=== PATIENT | female | born 1945 | race Caucasian/White ===

== ENCOUNTER 2018-01-03 14:58 | Emergency (ER) | payer MEDICARE ==
[2018-01-03] MEDS ORDERED: Ondansetron HCl/PF 4 MG/2 ML Vial ONE (15:37)
[2018-01-03 15:59] LABS: ALT (SGPT) 24 U/L (8-55); AST (SGOT) 27 U/L (5-34); Albumin 3.9 g/dL (3.4-4.8); Alkaline Phosphatase 48 U/L (40-150); Anion Gap 17 mmol/L (10-20); BUN (Urea Nitrogen) 26 mg/dL (9.8-20.1); Bilirubin, Total 0.7 mg/dL (0.2-1.2); Calc. Creatinine Clearance 0 mL/min (70-130); Calcium 9.2 mg/dL (7.8-10.44); Carbon Dioxide 20 mmol/L (23-31); Chloride 106 mmol/L (98-107); Estimated GFR-MDRD 58; Globulin 2.6 g/dL (2.4-3.5); Glucose 175 mg/dL (80-115); Lipase 10 U/L (8-78); Potassium 4.1 mmol/L (3.5-5.1); Protein, Total 6.5 g/dL (6.0-8.3); Sodium 139 mmol/L (136-145)
[2018-01-03 16:01] LABS: Hemoglobin 14.7 g/dL (12.0-16.0); Mean Corpuscular HGB CONC 34.1 g/dL (32.0-36.0); Mean Corpuscular Hemoglobin 32.6 pg (27.0-31.0); Mean Corpuscular Volume 95.7 fl (81.0-99.0); Mean Platelet Volume 6.8 fL (7.4-10.4); Platelet Count 302 thou/uL (130-400); RBC Distribution Width 11.5 % (11.5-14.5); Red Blood Cell (RBC) Count 4.52 mill/uL (4.20-5.40); White Blood Cell (WBC) Count 11.3 thou/uL (4.8-10.8)
[2018-01-03 16:02] LABS: Band 12 % (5-11); Eosinophils 2 % (0-10); Lymphocytes 3 % (21-51); MDiff Complete? YES; Monocytes 3 % (0-10); Neutrophil 80 % (42-75); PLT Morphology Comment Appears Adequate; RBC Morphology Normal
--- NOTE | 2018-01-03 16:15 | RAD ---
ONE VIEW CHEST: 01/03/18 HISTORY: Nausea and vomiting. COMPARISON: 10/14/15 FINDINGS: Portable upright chest demonstrates a calcified left axillary lymph node, unchanged. Stable configura tion of the cardiac silhouette. The pulmonary vessels and hilum are normal. Costophrenic angles are c lear. No masses or consolidation. No osseous abnormality or pneumothorax. IMPRESSION: No acute cardiopulmonary process. POS: [facility]
== END 2018-01-03 17:34 | disposition home or self-care (01) ==
LOC: SCSER 14:58
DX: R11.2 Nausea with vomiting, unspecified (principal); R19.7 Diarrhea, unspecified; E20.9 Hypoparathyroidism, unspecified; I10 Essential (primary) hypertension; F41.9 Anxiety disorder, unspecified; Z79.899 Other long term (current) drug therapy; E78.5 Hyperlipidemia, unspecified
CPT/HCPCS: 71045; 80053; 83690; 85025; 96361; 96374; J2405

== ENCOUNTER 2019-03-16 14:56 | Outpatient (CLI) | payer MEDICARE ==
--- NOTE | 2019-03-16 15:22 | ULT ---
ULTRASOUND DOPPLER DUPLEX VENOUS BILATERAL LOWER EXTREMITIES: DATE: 03/16/2019 HISTORY: Bilateral lower extremity edema TECHNIQUE: Grayscale, color-flow, and spectral analysis, of major veins of bilateral lower extremities. FINDINGS: There is demonstration of blood flow with normal compressibility, of the bilateral common femoral, pr ofunda femoral, greater saphenous, femoral, popliteal, and posterior tibial, veins. IMPRESSION: Negative. No deep venous thrombosis of bilateral lower extremities.
== END 2019-03-16 14:57 | disposition home or self-care (01) ==
LOC: SCSULT 14:56
PROVIDERS: ATTEND Family Medicine
DX: R60.9 Edema, unspecified (principal)
CPT/HCPCS: 36415; 80048; 93970

== ENCOUNTER 2019-03-20 14:03 | Inpatient (IN) | payer MEDICARE ==
[2019-03-20 14:40] LABS: #Eosinphils 0.5 thou/uL (0.0-0.7); #Lymphocytes 1.9 thou/uL (1.20-3.40); #Monocytes 0.9 thou/uL (0.11-0.59); #Neutrophils 9.3 thou/uL (1.40-6.50); %Basophils 0.4 % (0.0-1.0); %Eosinophils 4.2 % (0.0-10.0); %Lymphocytes 14.9 % (21.0-51.0); %Monocytes 6.7 % (0.0-10.0); %Neutrophils 73.9 % (42.0-75.0); Hemoglobin 13.2 g/dL (12.0-16.0); Mean Corpuscular HGB CONC 34.2 g/dL (32.0-36.0); Mean Corpuscular Volume 99.5 fL (78.0-98.0); Mean Platelet Volume 6.9 fL (7.4-10.4); Platelet Count 383 thou/uL (130-400); RBC Distribution Width 11.8 % (11.5-14.5); Red Blood Cell (RBC) Count 3.87 mill/uL (4.20-5.40); White Blood Cell (WBC) Count 12.6 thou/uL (4.8-10.8)
[2019-03-20 14:59] LABS: ALT (SGPT) 18 U/L (8-55); AST (SGOT) 21 U/L (5-34); Albumin 3.9 g/dL (3.4-4.8); Alkaline Phosphatase 82 U/L (40-150); Anion Gap 13 mmol/L (10-20); BUN (Urea Nitrogen) 25 mg/dL (9.8-20.1); Bilirubin, Total 0.5 mg/dL (0.2-1.2); Calc. Creatinine Clearance 0 mL/min (70-130); Calcium 9.7 mg/dL (7.8-10.44); Carbon Dioxide 22 mmol/L (23-31); Chloride 105 mmol/L (98-107); Estimated GFR-MDRD 51; Globulin 3.1 g/dL (2.4-3.5); Glucose 158 mg/dL (83-110); Potassium 3.6 mmol/L (3.5-5.1); Sodium 136 mmol/L (136-145)
[2019-03-20] MEDS ORDERED: Piperacillin/Tazobactam 4.5 GM VIAL ONE (16:18)
--- NOTE | 2019-03-20 16:49 | RAD ---
THREE VIEWS OF THE RIGHT FOOT: 03/20/19 COMPARISON: None. HISTORY: Cellulitis. Abscess in the bottom of the foot. FINDINGS: Three views of the right foot shows no evidence of acute fracture or dislocation. There is periosteal thickening in the metatarsals of the second, third, and fourth toes. No osseous erosions are seen. IMPRESSION: No evidence of acute osseous abnormality. Nonspecific periosteal reaction in the second through fourt h metatarsals. POS: [facility]
[2019-03-20] MEDS ORDERED: Dextrose 50% Abboject 50 ML SYRINGE SLOW IVP PRN (19:18)
[2019-03-20] MEDS ORDERED: Dextrose 5% in Water 1,000 ML IV PRN (19:18)
[2019-03-20] MEDS ORDERED: HYDROcodone/Acetaminophen 5/325 mg Tablet PO PRN (19:18)
[2019-03-20] MEDS ORDERED: HumaLOG 300 UNITS/3 ML VIAL SC PRN ×2 (19:18)
[2019-03-20] MEDS ORDERED: Ondansetron PF 4 MG/2 ML Vial IVP PRN (19:18)
[2019-03-20] MEDS ORDERED: Ibuprofen 200 MG TAB PO PRN (19:18)
[2019-03-20] MEDS ORDERED: Ondansetron ODT 4 MG TAB PO PRN (19:18)
[2019-03-20] MEDS ORDERED: Acetaminophen 325 MG TAB PO PRN (19:18)
[2019-03-20] MEDS ORDERED: hydrALAZINE 20 MG/ML VIAL SLOW IVP PRN (19:18)
[2019-03-20 20:30] VITALS: BMI 28.7
[2019-03-20] MEDS: Piperacillin/Tazobactam 3.375 GM in Sodium Chloride 0.9% 100 ML IVPB SCH (20:45)
[2019-03-20] MEDS: Famotidine 20 MG TAB PO SCH (20:45)
[2019-03-20] MEDS ORDERED: Vancomycin HCl 1 GM in Premix Bag 1 BAG IVPB SCH (21:00)
--- NOTE | 2019-03-21 01:00 | HP ---
PRIMARY CARE PHYSICIAN: Angel Lin MD. CHIEF COMPLAINT: Pain and swelling in the right foot and leg. HISTORY OF PRESENT ILLNESS: Ms. Ashley is a pleasant 73-year-old female who has a history of hypertension and hyperlipidemia. She was in her usual state of health until Saturday when she says her foot seemed a little bit uncomfortable, but she really could not see for herself. She asked her to take a look at it and he noticed a dome-like area that looked whitish. The pain got progressively worse and then by Saturday, the leg began to swell a little bit more and then on , it popped and there was pus coming out and then she started having both blood and pus return from the area. She went to see her primary care physician earlier today and due to the appearance of the area, he suggested that she come to the emergency room for evaluation. The patient has not had any fevers or chills, no nausea, no vomiting. She says that she has had some edema in the leg, which she had been treated for earlier, but she did not notice the infection symptoms until Saturday. REVIEW OF SYSTEMS: CONSTITUTIONAL: There has been no subjective fever, no chills, no night sweats, no weight loss. HEENT: No headaches. No dizziness. No visual changes. No sore throat, rhinorrhea, or neck pain. No adenopathy. PULMONARY: No hemoptysis. No cough. No wheezing. CARDIOVASCULAR: She denies any chest pain. No shortness of breath. No PND. No orthopnea. GASTROINTESTINAL: No abdominal pain. No nausea. No vomiting. No change in bowels. GENITOURINARY: No urinary frequency or hematuria, no hesitancy. NEUROLOGIC: No focal weakness or numbness. No seizures. PSYCHIATRIC: No symptoms of anxiety or depression. SKIN AND INTEGUMENT: As the History of Present Illness. PAST MEDICAL HISTORY: Significant for prediabetes, hypertension, hyperlipidemia, osteoporosis, and vaginal prolapse. PAST SURGICAL HISTORY: She has had an appendectomy, cholecystectomy, hysterectomy, and tonsillectomy. ALLERGIES: NO KNOWN DRUG ALLERGIES. SOCIAL HISTORY: She is a nonsmoker. She says she drinks "moderately." She is , has 2 children. She would not want to be resuscitated and would like to be a DNR. FAMILY HISTORY: Significant for coronary artery disease in her father and her mother had diabetes and osteoporosis. CURRENT MEDICATIONS: Include; 1. Lisinopril/hydrochlorothiazide 10/12.5 two times a day. 2. Albuterol inhaler as needed. 3. Estradiol 0.5 mg daily. 4. Simvastatin 40 mg at bedtime. 5. Alprazolam 0.5 mg 3 times a day. 6. Lasix 20 mg daily. 7. Potassium chloride 10 mEq daily. 8. Levothyroxine 112 mcg p.o. daily. PHYSICAL EXAMINATION: GENERAL: She is alert and oriented. She appears to be in no acute distress. She is well developed and well nourished. VITAL SIGNS: Blood pressure was 128/70, heart rate 94, respiratory rate of 20, temperature is 98, and O2 saturation was 93% on room air. HEENT: Her pupils are equal, round, and reactive to light and accommodation. Throat, there is no erythema, no exudates. Tympanic membranes are pearly navarro. NECK: There is no adenopathy, no bruits. LUNGS: Clear to auscultation. There is no wheezing, no rales, no rhonchi. CARDIOVASCULAR: She has a normal S1 and S2. I did not appreciate an S3 or S4. No murmurs, clicks, or rubs. ABDOMEN: Obese. It is soft, nontender, and nondistended. Positive for bowel sounds. There is no rebound, no guarding. EXTREMITIES: Her right lower extremity, there is redness all the way up to the calf on the lower extremity and 2+ pitting edema. There is also warmth in the leg and on the plantar aspect of the foot in the arch, there is an area of fluctuance in which she can express some whitish purulent material. She also has onychomycosis or mycotic nails bilaterally. However, her pulses are 2+ and symmetric in the dorsalis pedis and posterior tibial. NEUROLOGIC: Nonfocal. SKIN: As the extremity exam with the addition of some scaling skin on the lower extremities. IMAGING STUDIES: She had an x-ray of the foot, which was negative for any evidence of any gas. There was some periosteal thickening of the 2nd, 3rd, and 4th toes, but no osseous erosions. LABORATORY RESULTS: Her sodium was 136, potassium 3.6, chloride is 105, CO2 is 22, BUN of 25, creatinine 1.07, glucose is 158. White blood cell count is 12.6, hemoglobin 13.2, hematocrit is 38.5, and platelet count is 383. ASSESSMENT AND PLAN: 1. Ms. Ashley is a pleasant 73-year-old female, who suffers cellulitis of the right foot and leg. It is unclear whether or not she had any trauma or provoking factor. The area is quite extensive and she does have an elevation in her white blood cell count; therefore, she will be admitted for treatment, started on empiric IV antibiotics. We will also need to culture the wound and consult Surgery for possible I and D. 2. Prediabetes. Her blood glucose is a bit elevated; however, it is nonfasting. We will go ahead and check a fasting blood sugar in the a.m. as well as a hemoglobin A1c and place her on a sliding scale. 3. Hypertension. Continue her usual antihypertensive medications as well as p.r.n. medications as needed. 4. The patient will be placed on deep venous thrombosis and gastrointestinal prophylaxis. Job ID: [id number]
[2019-03-21] MEDS: Piperacillin/Tazobactam 3.375 GM in Sodium Chloride 0.9% 100 ML IVPB SCH ×4 (03:06→21:05)
[2019-03-21 05:55] LABS: #Basophils 0.1 thou/uL (0.0-0.2); #Eosinphils 0.6 thou/uL (0.0-0.7); #Lymphocytes 2.3 thou/uL (1.20-3.40); #Monocytes 0.8 thou/uL (0.11-0.59); #Neutrophils 4.2 thou/uL (1.40-6.50); %Basophils 0.9 % (0.0-1.0); %Lymphocytes 28.4 % (21.0-51.0); %Monocytes 9.6 % (0.0-10.0); Hemoglobin 12.5 g/dL (12.0-16.0); Mean Corpuscular HGB CONC 33.8 g/dL (32.0-36.0); Platelet Count 361 thou/uL (130-400); RBC Distribution Width 11.8 % (11.5-14.5); Red Blood Cell (RBC) Count 3.67 mill/uL (4.20-5.40)
[2019-03-21 06:17] LABS: Anion Gap 13 mmol/L (10-20); BUN (Urea Nitrogen) 19 mg/dL (9.8-20.1); Calc. Creatinine Clearance 77 mL/min (70-130); Carbon Dioxide 23 mmol/L (23-31); Chloride 107 mmol/L (98-107); Estimated GFR-MDRD 57; Glucose 102 mg/dL (83-110); Potassium 3.4 mmol/L (3.5-5.1); Sodium 140 mmol/L (136-145)
[2019-03-21] MEDS: Enoxaparin Sodium 40 MG/0.4 ML SYRINGE SC SCH (08:25)
[2019-03-21] MEDS: Famotidine 20 MG TAB PO SCH ×2 (08:25→21:02)
[2019-03-21 09:47] LABS: Hemoglobin A1c 6.2 % (4.0-6.0)
[2019-03-21] MEDS ORDERED: Lidocaine 1% (PF) 30 ML VIAL ONE (12:50)
[2019-03-21] MEDS ORDERED: Potassium Chloride 20 MEQ TAB PO SCH (15:30)
--- NOTE | 2019-03-21 16:22 | HP ---
HISTORY OF PRESENT ILLNESS: Yakelin Ashley is a 73-year-old female, admitted for right foot cellulitis. At home, she takes things for hypothyroidism, cholesterol, and anxiety. In the hospital, she is on a sliding scale insulin. Hemoglobin A1c was 6.2. I have been asked to see her regarding her right foot. The patient was admitted on 03/20/2019. Foot x-ray did not reveal any osteomyelitic changes. The patient has cellulitis on the aspect of her right foot. On the plantar aspect, there is an area of what appears to be a purulent collection beneath the skin. She has palpable pedal pulses. No evidence of vascular disease. She does not smoke. She does not drink alcohol. She is a DNR. HOME MEDICATIONS: 1. Furosemide. 2. Potassium. 3. Levothyroxine. 4. Simvastatin. 5. Lisinopril/hydrochlorothiazide 07/25.5. 6. Alprazolam t.i.d. p.r.n. PAST SURGICAL HISTORY: Open cholecystectomy; right paramedian incision many years ago, open; hysterectomy; tonsillectomy. PAST MEDICAL HISTORY: Prediabetes, hypertension, hyperlipidemia, osteoporosis, vaginal prolapse. PHYSICAL EXAMINATION: VITAL SIGNS: Height 5 foot 10 inches, weight 200 pounds. Temperature 97.8, pulse 74, blood pressure 114/69. HEAD, EARS, EYES, NOSE AND THROAT: Unremarkable. LUNGS: Clear to auscultation. CARDIAC: Regular rate and rhythm without murmur or gallop. ABDOMEN: Soft. Right paramedian vertical incision from cholecystectomy. Obese abdomen. EXTREMITIES: Palpable femoral, popliteal, dorsalis pedis pulses. On the right lateral foot, areas of marking, where cellulitis has resolved with intravenous antibiotics and markedly improved. On the plantar aspect laterally, mid foot is an area about 2 cm with what appears to be purulence under the skin. ASSESSMENT: Right foot infection. PLAN: Debridement at the bedside. She does not need to be n.p.o. We will ask the nurses to gather equipment, obtain consent, and debride this with alcohol pad and sharp instrument, and provide cultures, if possible. I expect her to be able to be discharged in 1 or 2 days, and she could follow up in my office, if necessary. We will wait and see what is under this area after I debrided it at bedside. Job ID: [id number]
--- NOTE | 2019-03-21 17:37 | PDOC.PN ---
- Subjective Encounter Start Date: 03/21/19 Encounter Start Time: 15:15 Ms. Ashley was seen today in follow-up of Cellulitis and abscess of the right foot. She does not have any complaints today - Objective Resuscitation Status - Order Detail: 03/20/19 19:13 Resuscitation Status Routine Resuscitation Status: DNAR: NO Resuscitation Discussed with: discussed with the patient MAR Reviewed: Yes Vital Signs & Weight: Vital Signs (12 hours) Temp Pulse Resp BP Pulse Ox 03/21/19 17:31 105/68 03/21/19 16:43 97.4 F L 70 16 96/52 L 93 L 03/21/19 11:39 97.8 F 74 16 114/69 90 L 03/21/19 08:25 90 L 03/21/19 08:08 97.8 F 73 18 147/85 H 90 L Weight Weight 200 lb Result Diagrams: 03/21/19 05:38 03/21/19 05:38 Additional Labs: Accuchecks 03/21/19 03/21/19 03/21/19 16:41 11:43 04:49 POC Glucose 173 H 98 96 03/20/19 19:55 POC Glucose 119 H Phys Exam - Physical Examination HEENT: PERRLA Respiratory: no wheezing, no rales, no rhonchi, clear to auscultation bilateral Cardiovascular: RRR, no significant murmur, no rub Gastrointestinal: soft, non-tender, no distention, positive bowel sounds Musculoskeletal: pulses present, edema present + erythema and mild warmth of the right lower extremity foot is dressed Dx/Plan (1) Cellulitis of right lower extremity Code(s): L03.115 - CELLULITIS OF RIGHT LOWER LIMB Status: Acute (2) Pre-diabetes Code(s): R73.03 - PREDIABETES Status: Chronic (3) Hypertension Code(s): I10 - ESSENTIAL (PRIMARY) HYPERTENSION Status: Chronic (4) Hyperlipidemia Code(s): E78.5 - HYPERLIPIDEMIA, UNSPECIFIED Status: Chronic - Plan * Cellulitis and abscess of the right foot and leg- he is post I& D of the right foot * Continue IV antibiotics * Will re-assess the appearance tomorrow * Follow-up on cultures * HTN- blood pressure is stable.
[2019-03-21] MEDS: Vancomycin HCl 1.25 GM in Sodium Chloride 0.9% 250 ML 250 ML IVPB SCH (17:39)
[2019-03-21] MEDS ORDERED: ALPRAZolam 1 MG TAB PO PRN (17:54)
[2019-03-21] MEDS: Atorvastatin Calcium 20 MG TAB PO SCH (21:02)
[2019-03-21] MEDS: Lisinopril/Hydrochlorothiazide 10 mg/12.5 mg Tablet PO SCH (21:03)
[2019-03-22] MEDS: Piperacillin/Tazobactam 3.375 GM in Sodium Chloride 0.9% 100 ML IVPB SCH ×4 (05:04→21:04)
[2019-03-22] MEDS: Levothyroxine Sodium 100 MCG TAB PO SCH (05:06)
[2019-03-22] MEDS: Lisinopril/Hydrochlorothiazide 10 mg/12.5 mg Tablet PO SCH ×2 (07:32→21:03)
[2019-03-22] MEDS: Potassium Chloride 10 MEQ TAB PO SCH (07:33)
[2019-03-22] MEDS: Famotidine 20 MG TAB PO SCH ×2 (07:33→21:03)
[2019-03-22] MEDS: Enoxaparin Sodium 40 MG/0.4 ML SYRINGE SC SCH (07:33)
[2019-03-22] MEDS: Furosemide 20 MG TAB PO SCH (07:33)
[2019-03-22] MEDS ORDERED: PROVENTIL INHALER 6.7 G (200 INHALATIONS) INH PRN (15:30)
--- NOTE | 2019-03-22 15:33 | PDOC.PN ---
- Subjective Encounter Start Date: 03/22/19 Encounter Start Time: 15:38 Ms. Ashley was seen in follow-up of cellulitis and infection of the right foot. She says it has improved. She is complaining of a cough with some wheezing which started last night. - Objective Resuscitation Status - Order Detail: 03/20/19 19:13 Resuscitation Status Routine Resuscitation Status: DNAR: NO Resuscitation Discussed with: discussed with the patient MAR Reviewed: Yes Vital Signs & Weight: Vital Signs (12 hours) Temp Pulse Resp BP BP Pulse Ox 03/22/19 07:32 72 141/73 H 03/22/19 07:30 92 L 03/22/19 07:19 97.8 F 77 17 141/73 H 92 L Weight Weight 200 lb I&O: 03/21/19 03/22/19 03/23/19 06:59 06:59 06:59 Intake Total 1550 Balance 1550 Result Diagrams: 03/21/19 05:38 03/21/19 05:38 Additional Labs: Accuchecks 03/22/19 03/22/19 03/21/19 11:29 04:33 19:45 POC Glucose 182 H 122 H 117 H 03/21/19 16:41 POC Glucose 173 H Phys Exam - Physical Examination HEENT: PERRLA Respiratory: wheezing present + bilaterally wheezing, no rhonchi Cardiovascular: RRR, no significant murmur, no rub Gastrointestinal: soft, non-tender, no distention, positive bowel sounds Musculoskeletal: pulses present, edema present + mild right lower extremityeruthema Neurological: non-focal, normal sensation Dx/Plan (1) Cellulitis of right lower extremity Code(s): L03.115 - CELLULITIS OF RIGHT LOWER LIMB Status: Acute (2) Pre-diabetes Code(s): R73.03 - PREDIABETES Status: Chronic (3) Hypertension Code(s): I10 - ESSENTIAL (PRIMARY) HYPERTENSION Status: Chronic (4) Hyperlipidemia Code(s): E78.5 - HYPERLIPIDEMIA, UNSPECIFIED Status: Chronic - Plan * Cellultis of the rith leg and foot- improved- * Wheezing- will start Albuterol PRN * HTN- blood pressure is controlled * I spoke with the patient's daughter and she is concerned about her parents ability to live by themselves. She noted that their home was in disarray and essentially not liveable . Will consult Case management for discharge planning.
[2019-03-22 16:43] LABS: Vancomycin, Trough 12.7 ug/mL
[2019-03-22] MEDS: Vancomycin HCl 1.25 GM in Sodium Chloride 0.9% 250 ML 250 ML IVPB SCH (17:44)
[2019-03-22] MEDS ORDERED: Vancomycin HCl 1.5 GM in Sodium Chloride 0.9% 250 ML 300 ML IVPB SCH (18:00)
[2019-03-22] MEDS: Atorvastatin Calcium 20 MG TAB PO SCH (21:03)
[2019-03-23] MEDS: Piperacillin/Tazobactam 3.375 GM in Sodium Chloride 0.9% 100 ML IVPB SCH ×2 (03:20→09:00)
[2019-03-23] MEDS: Levothyroxine Sodium 100 MCG TAB PO SCH (03:20)
[2019-03-23] MEDS: Famotidine 20 MG TAB PO SCH ×2 (08:18→20:52)
[2019-03-23] MEDS: Potassium Chloride 10 MEQ TAB PO SCH (08:18)
[2019-03-23] MEDS: Enoxaparin Sodium 40 MG/0.4 ML SYRINGE SC SCH (08:18)
[2019-03-23] MEDS: Furosemide 20 MG TAB PO SCH (08:18)
[2019-03-23] MEDS: Lisinopril/Hydrochlorothiazide 10 mg/12.5 mg Tablet PO SCH ×2 (08:18→20:51)
--- NOTE | 2019-03-23 13:58 | HP ---
ADDENDUM: Addendum to history and physical/consultation. Note, the patient has edema in her right leg and cellulitis to her ankle. Further discussion with the patient reveals that she does not recall any offending trauma, but thinks she may have stepped on something Saturday or Saturday, although she did not feel that. They noticed a bump on the right foot, Saturday or Saturday. Today is Saturday. After incising and draining this and culturing it, we will have Wound Care change the dressings daily with saline wet-to-dry dressings and after washing with soap and water in the bath or shower. She will need to be on intravenous antibiotics until we obtained cultures back until her cellulitis improves. This is a deep wound infection and hopefully it will heal and infection clear with antibiotics. Job ID: [id number]
--- NOTE | 2019-03-23 14:43 | PDOC.PN ---
- Subjective Encounter Start Date: 03/23/19 Encounter Start Time: 14:42 Ms. Ashley was seen today in follow-up of celulitis of the right foot. She notes less swelling, but continued pain on the plantar aspect of her foot. - Objective Resuscitation Status - Order Detail: 03/20/19 19:13 Resuscitation Status Routine Resuscitation Status: DNAR: NO Resuscitation Discussed with: discussed with the patient MAR Reviewed: Yes Vital Signs & Weight: Vital Signs (12 hours) Temp Pulse Resp BP Pulse Ox 03/23/19 08:18 93 L 03/23/19 08:00 97.5 F L 83 20 154/78 H 93 L Weight Admit Weight 200 lb Weight 200 lb I&O: 03/22/19 03/23/19 03/24/19 06:59 06:59 06:59 Intake Total 1550 2120 Balance 1550 2120 Result Diagrams: 03/21/19 05:38 03/21/19 05:38 Additional Labs: Accuchecks 03/23/19 03/23/19 03/22/19 10:58 04:14 19:35 POC Glucose 194 H 113 H 191 H 03/22/19 16:25 POC Glucose 144 H Phys Exam - Physical Examination HEENT: PERRLA Respiratory: no wheezing, no rales, no rhonchi, clear to auscultation bilateral Cardiovascular: RRR, no significant murmur, no rub Gastrointestinal: soft, non-tender, no distention, positive bowel sounds Musculoskeletal: pulses present, edema present + mild erythema of the right leg wound is dressed Dx/Plan (1) Cellulitis of right lower extremity Code(s): L03.115 - CELLULITIS OF RIGHT LOWER LIMB Status: Acute (2) Pre-diabetes Code(s): R73.03 - PREDIABETES Status: Chronic (3) Hypertension Code(s): I10 - ESSENTIAL (PRIMARY) HYPERTENSION Status: Chronic (4) Hyperlipidemia Code(s): E78.5 - HYPERLIPIDEMIA, UNSPECIFIED Status: Chronic - Plan * Cellulitis- wound culture is growing strep. intermedius.- will change the antibiotics to Rocephin and flagyl * Continue local wound care * HTN- blood pressure is stable * Discharge planning in progress .
--- NOTE | 2019-03-23 15:03 | OP ---
DATE OF PROCEDURE: 03/21/2019 PREOPERATIVE DIAGNOSIS: Right foot infection. POSTOPERATIVE DIAGNOSIS: Right foot infection. PROCEDURES PERFORMED: Incision and drainage of right foot infection, debridement of overlying skin blister, appreciating the deeper wound tracking, approximately 1.5 cm deep to the wound cultures performed. ANESTHESIA: 1% Xylocaine. DESCRIPTION OF PROCEDURE: With the patient at bedside, the right foot plantar aspect mid beneath the metatarsal first cleansed with alcohol and blistered skin excised sharply with a 10 blade, removed and under this was a punctate opening. Local anesthetic was used at this point. 1% Xylocaine was infiltrated in the skin and subcutaneous tissue and a small opening made to unroof an underlying abscess cavity. A small amount of purulent material was sent for culture and sensitivity blistering in the wound. Wound packed open. The patient tolerated the procedure well. Job ID: [id number]
[2019-03-23] MEDS: metroNIDAZOLE 250 MG TAB PO SCH ×2 (16:01→20:52)
[2019-03-23] MEDS: cefTRIAXone\\ROCEPHIN 1 GM in Sodium Chloride 0.9% 100 ML IVPB SCH (16:02)
[2019-03-23] MEDS: Atorvastatin Calcium 20 MG TAB PO SCH (20:52)
[2019-03-24] MEDS: Levothyroxine Sodium 100 MCG TAB PO SCH (05:06)
[2019-03-24] MEDS: Potassium Chloride 10 MEQ TAB PO SCH (08:06)
[2019-03-24] MEDS: Furosemide 20 MG TAB PO SCH (08:06)
[2019-03-24] MEDS: Famotidine 20 MG TAB PO SCH ×2 (08:06→20:48)
[2019-03-24] MEDS: metroNIDAZOLE 250 MG TAB PO SCH ×3 (08:06→20:48)
[2019-03-24] MEDS: Lisinopril/Hydrochlorothiazide 10 mg/12.5 mg Tablet PO SCH ×2 (08:06→20:48)
[2019-03-24] MEDS: Enoxaparin Sodium 40 MG/0.4 ML SYRINGE SC SCH (08:06)
--- NOTE | 2019-03-24 14:31 | PDOC.PN ---
- Subjective Encounter Start Date: 03/24/19 Encounter Start Time: 14:29 Ms. Ashley was seen today in follow-up. She does not have any new complaints. - Objective Resuscitation Status - Order Detail: 03/20/19 19:13 Resuscitation Status Routine Resuscitation Status: DNAR: NO Resuscitation Discussed with: discussed with the patient MAR Reviewed: Yes Vital Signs & Weight: Vital Signs (12 hours) Temp Pulse Resp BP BP Pulse Ox 03/24/19 08:06 75 151/85 H 93 L 03/24/19 07:52 97.4 F L 75 18 151/85 H 93 L Weight Admit Weight 200 lb Weight 200 lb I&O: 03/23/19 03/24/19 03/25/19 06:59 06:59 06:59 Intake Total 2120 1720 Balance 2120 1720 Result Diagrams: 03/21/19 05:38 03/21/19 05:38 Additional Labs: Accuchecks 03/24/19 03/24/19 03/23/19 11:55 04:41 19:22 POC Glucose 109 124 H 132 H 03/23/19 16:06 POC Glucose 179 H Phys Exam - Physical Examination HEENT: PERRLA Respiratory: no wheezing, no rales, no rhonchi, clear to auscultation bilateral Cardiovascular: RRR, no significant murmur, no rub Gastrointestinal: soft, non-tender, no distention, positive bowel sounds Musculoskeletal: pulses present, edema present + mild erythema of the right lower extremity, wound on plantar foot, is clean, with clear drainage. no fluctuance Dx/Plan (1) Cellulitis of right lower extremity Code(s): L03.115 - CELLULITIS OF RIGHT LOWER LIMB Status: Acute (2) Pre-diabetes Code(s): R73.03 - PREDIABETES Status: Chronic (3) Hypertension Code(s): I10 - ESSENTIAL (PRIMARY) HYPERTENSION Status: Chronic (4) Hyperlipidemia Code(s): E78.5 - HYPERLIPIDEMIA, UNSPECIFIED Status: Chronic - Plan * Cellulitis of the right leg- can likely transition her to Keflex * HTN- blood pressure is borderline- will continue the current medications, and PRN medications * Pre-diabetes- stable- ( diet controlled) * Awaiting discharge plans, as patient's current living condition is unsuitable.
[2019-03-24] MEDS: cefTRIAXone\\ROCEPHIN 1 GM in Sodium Chloride 0.9% 100 ML IVPB SCH (15:01)
[2019-03-24] MEDS: Atorvastatin Calcium 20 MG TAB PO SCH (20:48)
[2019-03-25] MEDS ORDERED: Clopidogrel Bisulfate 75 MG TAB ONE (05:45)
[2019-03-25] MEDS: Levothyroxine Sodium 100 MCG TAB PO SCH (05:51)
[2019-03-25] MEDS: Famotidine 20 MG TAB PO SCH (09:17)
[2019-03-25] MEDS: Furosemide 20 MG TAB PO SCH (09:17)
[2019-03-25] MEDS: Potassium Chloride 10 MEQ TAB PO SCH (09:17)
[2019-03-25] MEDS: Enoxaparin Sodium 40 MG/0.4 ML SYRINGE SC SCH (09:18)
[2019-03-25] MEDS: Lisinopril/Hydrochlorothiazide 10 mg/12.5 mg Tablet PO SCH (09:24)
[2019-03-25] MEDS: metroNIDAZOLE 250 MG TAB PO SCH (09:24)
[2019-03-25 11:33] VITALS: TEMP 98.2
[2019-03-25 16:37] VITALS: BP 109/72
--- NOTE | 2019-03-25 19:34 | DIS ---
DATE OF ADMISSION: 03/20/2019 DATE OF DISCHARGE: 03/25/2019 DISCHARGE DIAGNOSES: 1. Right foot abscess/cellulitis, status post incision and drainage. 2. Hypertension, stable. 3. Hyperlipidemia, stable. CONSULTATIONS: Dr. Hidalgo with General Surgery Service. PERTINENT LAB AND X-RAY FINDINGS: Hemoglobin A1c 6.2. Lactic acid level 1.9. LFTs within normal limits. CBC showed a white blood cell count ranged between 8.0 to 12.6. Blood cultures x2 dated 03/20/2019, showed no growth at 48 hours. Right foot wound culture dated 03/20 and 03/21/2019, positive for Streptococcus intermedius. Three views of the right foot dated 03/20/2019, showed no acute process. Bilateral lower extremity venous Doppler study dated 03/16/2019, showed no evidence for DVT. HOSPITAL COURSE: The patient was admitted after presenting with swelling and erythema of the right foot and lower extremity with evidence of abscess of the plantar aspect of the right foot. The patient was evaluated by the General Surgery Service, undergoing incision and drainage of the right foot on 03/21/2019. Wound cultures showed Streptococcus intermedius species and the patient remained on IV Rocephin and Flagyl. The patient received local wound care throughout the hospital course, stabilizing with decreased erythema and edema of the right lower extremity. Due to the patient's social situation and living situation at home, discussions were had with Case Management regarding potential options including skilled care. The patient and family have decided to pursue temporary residence in a local hotel until repairs are made at their current residence. The patient and received instruction and education on local wound care with daily dressing changes and wet-to-dry recommendations. I have examined the patient at the time of discharge and discussed followup instructions. The patient overall clinically stable and ready for discharge on 03/25/2019. DISCHARGE MEDICATIONS: 1. Alprazolam 1 mg p.o. t.i.d. p.r.n. 2. Lasix 20 mg p.o. daily. 3. Levothyroxine 100 mcg p.o. daily. 4. Lisinopril/HCTZ 10/12.5 mg 1 tablet p.o. b.i.d. 5. Potassium chloride 10 mEq p.o. daily. 6. Zocor 40 mg p.o. at bedtime. 7. Keflex 500 mg p.o. b.i.d. x10 days. FOLLOWUP: The patient may follow up with her primary care provider, Dr. Angel Lin within 7 days of discharge. The patient may follow up with Dr. Parag Hidalgo within 2 to 3 weeks after discharge. CONDITION ON DISCHARGE: Stable. ACTIVITY: Ad-cayetano. DIET: Heart healthy. CODE STATUS: Full. SPECIAL INSTRUCTIONS: Daily dressing changes with wet-to-dry recommendations. DISPOSITION: Home on 03/25/2019. TIME SPENT: Total time preparing and coordinating discharge, 35 minutes. Job ID: [id number]
--- NOTE | 2019-03-26 08:53 | PQF ---
S[employer] Manager Medical Writing Crystal Reports Winform ViewerHANNHA DOCKERYELSA KIMBLE MD [id number] [id number] CLINICAL DOCUMENTATION CLARIFICATION FORM: POST DISCHARGE Addendum to original discharge summary date: ____ Late entry note date: __ DATE: 07/26/2019 ATTN: ELSA BOJORQUEZ MD Please exercise your independent, professional judgment in responding to the clarification form. Clinical indicators are provided on the bottom of this form for your review Please check appropriate box(s): [ X] Incision and Drainage Depth:[ ] Skin [ X ] Subcutaneous [ ] Fascia [ ] Muscle [ ] Tendon [ ] Bone [ ] Escharectomy [ ] Other procedure diagnosis [ ] Unable to determine For continuity of documentation, please document condition throughout progress notes and discharge summary. Thank You. CLINICAL INDICATORS - SIGNS / SYMPTOMS / LABS I&D of Right foot infection - Documented in Operative report on 03/21/19 by Rocky Duque MD 1% Xylocaine was infiltrated in the skin and subcutaneous tissue - Documented in Operative report on 03/21/19 by Rocky Duque MD small opening made to unroof an underlying abscess cavity - Documented in Operative report on 03/21/19 by Rocky Duque MD appreciating the deeper wound tracking - Documented in Operative report on 06/01 by Rocky Duque MD RISK FACTORS Right foot abscess/ cellulitis - Documented in Discharge summary on 03/25 by Ranjeet Frank DO TREATMENTS: A small amount of purlent material was sent for culture - Documented in Operative report on 03/21/19 by Rocky Duque MD Wound care change the dressing daily with saline wet-to-dry dressing - Documented in H&P on 03/23/19 by Rocky Duque MD (This form is maintained as a part of the permanent medical record) SAP Manager Medical Writing Crystal Reports Winform [id number] [facility]. All Rights Reserved [email or web address] [email or web address] [not provided] [email or web address]
== END 2019-03-25 14:35 | disposition home or self-care (01) | DRG 581 ==
LOC: ERS 14:03 → T4-B 18:33
PROVIDERS: ADMIT Internal Medicine; ATTEND Internal Medicine
PROC: 0HBMXZZ Excision of Right Foot Skin, External Approach (ICD-10-PCS; 2019-03-20)
PROC: 0J9Q0ZZ Drainage of Right Foot Subcutaneous Tissue and Fascia, Open Approach (ICD-10-PCS; principal; 2019-03-21)
DX: L03.115 Cellulitis of right lower limb (principal); I10 Essential (primary) hypertension; M81.0 Age-related osteoporosis without current pathological fracture; R73.03 Prediabetes; Z66 Do not resuscitate; R06.2 Wheezing; B95.4 Other streptococcus as the cause of diseases classified elsewhere; E03.9 Hypothyroidism, unspecified; F41.9 Anxiety disorder, unspecified; Z90.49 Acquired absence of other specified parts of digestive tract; Z90.710 Acquired absence of both cervix and uterus; Z79.899 Other long term (current) drug therapy
CPT/HCPCS: 36415; 36416; 80048; 80053; 80202; 83036; 83605; 85025; 87040; 87070; 87076; 87205; 96365; 96367; J0696; J1650; J2001; J2543; J3370; J3490; J7050; J7620